=== PATIENT | female | born 1945 | race Caucasian/White ===

== ENCOUNTER 2020-07-02 13:58 | Emergency (ER) | payer MEDICARE, SELFPAY ==
--- NOTE | ~2020-07-02 | XR_ITS ---
EXAMINATION: XR finger 5th RT min 2V DATE: 07/02/2020 14:46 INDICATION: Pain at the fifth proximal interphalangeal joint post injury TECHNIQUE: Dorsal palmar, lateral and oblique views of the right fifth digit were obtained COMPARISON: None FINDINGS: Subtle oblique linear lucency consistent with nondisplaced fracture extending from proximal ulnar to medial radial across the diaphysis of the right fifth proximal phalanx. Alignment remains essentially anatomic. No evident involvement of the articular cortex. 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 Diffuse osteopenia. Soft tissue swelling about the base of the fifth digit. IMPRESSION: 1. Nondisplaced extra articular diaphyseal fracture of the right fifth proximal phalanx. Reviewed, dictated and finalized at location A. [facility] [facility]
[2020-07-02 14:21] VITALS: BP 198/69; PULSE 91; RESP 20; TEMP 36.9; O2SAT 93
--- NOTE | 2020-07-02 14:30 | ED.UPPEXIN ---
HPI - Extremity Injury (Upper) General Chief Complaint: Extremity Injury, Upper Stated Complaint: Fall Time Seen by Provider: 07/02/20 14:30 Source: patient and RN notes reviewed History of Present Illness HPI narrative: Patient is a 75-year-old female who presents the urgent care with complaints of right pinky finger pain and swelling. Patient states that she got her pinky finger caught on the door frame in her sister's garage, after slipping on a tarp. Patient states that she also has a small abrasion to the left knee but denies of any left knee pain. Denies of hitting her head or any loss of consciousness. Patient has not used anything [id number] for her pain or ice to the area. No other acute complaints. No acute distress noted. Patient aware of the plan of care. Some parts of this dictation were generated by voice recognition software and may contain typographical and/or grammatical inaccuracies. Related Data Home Medications Medication Instructions Recorded Confirmed albuterol sulfate 2 puff INHALATION Q4-6H PRN 07/02/20 07/02/20 budesonide-formoterol [Symbicort] 2 puff INHALATION BID 07/02/20 07/02/20 lisinopril 5 mg PO DAILY 07/02/20 07/02/20 rosuvastatin 40 mg PO DAILY 07/02/20 07/02/20 Review of Systems Review of Systems: Narrative: CONSTITUTIONAL: Denies fever, chills, or sweats. EYES: Denies visual changes, redness, or discharge. ENT: Denies rhinorrhea, congestion, sore throat, or otalgia. CARDIOVASCULAR: Denies chest pain, palpitations, or edema. RESPIRATORY: Denies cough or dyspnea. GASTROINTESTINAL: Denies abdominal pain, nausea, vomiting, or diarrhea. GENITOURINARY: Denies dysuria or hematuria. SKIN: Denies rash or itching. MUSCULOSKELETAL: Reports of right pinky finger pain and swelling. NEUROLOGIC: Denies headache, numbness, or weakness. All other systems reviewed are negative, except as documented in HPI. PMFSH Comments At the time of my signature, I reviewed and agree with the nursing past medical, surgical, social, and family history. There is no relevant family history pertinent to the patient complaint. Exam Narrative: Exam Narrative: GENERAL: This is a well-nourished, well-developed patient, in no apparent distress. HEAD: normocephalic, atraumatic. EYES: PERRL. Sclera clear/white. Vision is grossly intact. EARS: External ears normal NOSE: External nose normal with no obvious nasal discharge, nares without redness, no rhinorrhea. THROAT: Mucous membranes moist NECK: Neck supple SKIN: warm, intact with no suspicious lesions or rash, good texture and turgor. NEURO: awake, alert, and oriented to person, place and time. There were no obvious focal neurologic abnormalities. EXTREMITIES: Moderate edema and ecchymosis noted from the DIP to the distal tip of the right pinky finger. Positive strong right radial pulse with capillary refill less than 2 seconds. Difficulty and pain with range of motion of affected finger. Course Vital Signs Vital signs: Vital Signs Temperature 98.4 F 07/02/20 14:21 Pulse Rate 91 07/02/20 14:21 Respiratory Rate 20 07/02/20 14:21 Blood Pressure 198/69 H 07/02/20 14:21 Pulse Oximetry 93 07/02/20 14:21 Temperature 98.4 F 07/02/20 14:38 Pulse Rate 91 07/02/20 14:38 Respiratory Rate 20 07/02/20 14:38 Blood Pressure 198/69 H 07/02/20 14:38 Pulse Oximetry 93 07/02/20 14:38 Reviewed-patient is informed that they may have pre-hypertension or hypertension based on a blood pressure reading in the department. I recommend the patient call the primary care provider listed on their discharge instructions or a physician of their choice this week to arrange follow-up for further evaluation of possible pre-hypertension or hypertension. Procedures Orthopedic Splinting/Casting Injury #1: Side: right Upper Extremity Injury Location: finger (Pinky finger) Pre-Formed: metal foam finger splint Pre-Procedure Neuro Vascular Exam: no
[2020-07-02 14:38] VITALS: BP 198/69; PULSE 91; RESP 20; TEMP 36.9; O2SAT 93
== END 2020-07-02 15:00 | disposition home or self-care (01) ==
PROVIDERS: Emergency Provider Nurse Practitioner Family; PCP Internal Medicine
DX: S62.646A Nondisplaced fracture of proximal phalanx of right little finger, initial encounter for closed fracture (principal); X58.XXXA Exposure to other specified factors, initial encounter; E78.00 Pure hypercholesterolemia, unspecified; I10 Essential (primary) hypertension; J43.9 Emphysema, unspecified
CPT/HCPCS: 29130; 73140; 99214; G0463